=== PATIENT | male | born 1950 | race Caucasian/White ===

== ENCOUNTER 2023-08-31 15:00 | Outpatient (RCR) | payer MEDICARE | END 2023-09-11 | disposition home or self-care (01) | LOC: WSC | DX: M54.42 Lumbago with sciatica, left side (principal); G89.29 Other chronic pain ==

== ENCOUNTER 2023-10-27 13:00 | Outpatient (RCR) | payer MEDICARE | END 2023-11-10 | disposition home or self-care (01) | LOC: WSST | DX: R41.3 Other amnesia (principal) ==

== ENCOUNTER → 2024-04-25 | Outpatient (CLI) | payer MEDICARE | LOC: MHCPAIN 10:40 | DX: M47.816 Spondylosis without myelopathy or radiculopathy, lumbar region (principal); M48.062 Spinal stenosis, lumbar region with neurogenic claudication; M54.50 Low back pain, unspecified; E11.9 Type 2 diabetes mellitus without complications; Z79.84 Long term (current) use of oral hypoglycemic drugs; I10 Essential (primary) hypertension; E03.9 Hypothyroidism, unspecified | CPT/HCPCS: G0463 ==

== ENCOUNTER → 2024-07-06 | Outpatient (CLI) | payer MEDICARE | LOC: MHCPAIN 09:53 | DX: M47.816 Spondylosis without myelopathy or radiculopathy, lumbar region (principal); M48.02 Spinal stenosis, cervical region; I10 Essential (primary) hypertension; E11.9 Type 2 diabetes mellitus without complications; Z79.84 Long term (current) use of oral hypoglycemic drugs | CPT/HCPCS: G0463 ==